=== PATIENT | male | born 2005 | race Caucasian/White ===

== ENCOUNTER 2023-04-11 12:15 | Inpatient (IN) | payer SELFPAY ==
[~2023-04-11] VITALS: Ht 170.2 cm; Wt 80.0 kg
[2023-04-11] MEDS ORDERED: IBUP-1022 PO (12:32)
[2023-04-11 17:13] LABS: RSV AMPLIFICATION NEGATIVE (NEGATIVE)
[2023-04-11] MEDS ORDERED: HOME MED LIST COMPLETE! XX SCH (22:00)
[2023-04-11] MEDS ORDERED: ONDANSETRON 4MG 2ML VIAL IV PRN (23:15)
[2023-04-11] MEDS: LR 1,000 ML IV SCH (23:15)
[2023-04-12] MEDS: NORCO, ANEXSIA 5/325MG TABLET (HYDROcodone/ACETAMINOPHEN) PO PRN (00:25)
[2023-04-12 02:43] VITALS: BP 113/68; TEMP 98.2; O2SAT 97
[2023-04-12 06:00] VITALS: BP_SYST 115; BP_SYST 129; BP_DIAS 68; BP_DIAS 70; TEMP 97.7; TEMP 97.9; O2SAT 95; O2SAT 98
[2023-04-12] MEDS: KETOROLAC 30 MG/ML 1ML VIAL IV PRN ×2 (07:28→23:45)
[2023-04-12] MEDS: LR 1,000 ML IV SCH ×3 (12:00→23:15)
[2023-04-12] MEDS ORDERED: TRANEXAMIC ACID 100 MG/ML 10ML VIAL As Ordered ONE (21:38)
[2023-04-12] MEDS ORDERED: ceFAZolin 2 GM/D5W 50 ML IV BAG As Ordered ONE (21:38)
[2023-04-12] MEDS ORDERED: DESFLURANE 240 ML INHALANT As Ordered ONE (21:46)
[2023-04-12] MEDS ORDERED: ONDANSETRON 4MG 2ML VIAL As Ordered ONE (21:46)
[2023-04-12] MEDS ORDERED: LIDOCAINE 2% 100MG/5ML SDV (FOR ANES.) As Ordered ONE (21:46)
[2023-04-12] MEDS ORDERED: propofoL 200 MG/20 ML VIAL As Ordered ONE (21:46)
[2023-04-12] MEDS ORDERED: SUGAMMADEX SODIUM 500 MG/5 ML VIAL (BRIDION) As Ordered ONE (21:46)
[2023-04-12] MEDS ORDERED: ROCURONIUM BROMIDE 50MG/5ML VIAL As Ordered ONE ×2 (21:46→21:53)
[2023-04-12] MEDS ORDERED: ACETAMINOPHEN 1000MG 100ML IV BAG As Ordered ONE (21:46)
[2023-04-12] MEDS ORDERED: METOCLOPRAMIDE INJ 10MG/2ML VIAL As Ordered ONE ×2 (21:46→21:47)
[2023-04-12] MEDS ORDERED: MIDAZOLAM INJ 2MG/2ML VIAL As Ordered ONE (21:46)
[2023-04-12] MEDS ORDERED: SEVOFLURANE INHAL SOLN 250 ML BTL As Ordered ONE (21:46)
[2023-04-12] MEDS ORDERED: fentaNYL 250 MCG/5 ML INJECTION As Ordered ONE (21:46)
[2023-04-12] MEDS ORDERED: dexmedeTOMIDine (4MCG/ML)200MCG/50ML BTL (PRECEDEX) As Ordered ONE (22:03)
[2023-04-12] MEDS ORDERED: oxyCODONE 5MG TAB PO PRN (23:50)
[2023-04-12] MEDS ORDERED: HYDROMORPHONE HCL 0.5 MG/ 0.5 ML SYRINGE IV PRN (23:50)
[2023-04-12] MEDS ORDERED: fentaNYL 100 MCG/2 ML INJECTION IV PRN (23:50)
[2023-04-12] MEDS ORDERED: ONDANSETRON 4MG 2ML VIAL IV PRN (23:50)
[2023-04-12] MEDS ORDERED: MEPERIDINE 25 MG/ML 1ML VIAL IV PRN (23:50)
[2023-04-13] VITALS (13 sets, daily range): BP systolic 100–116; BP diastolic 52–66; TEMP 96.6–98.2; O2SAT 94–98
[2023-04-13] MEDS: LR 1,000 ML IV SCH ×2 (01:50→21:50)
[2023-04-13] MEDS ORDERED: CLINDAMYCIN 600MG/50ML PREMIX BAG As Ordered ONE (10:24)
[2023-04-13] MEDS ORDERED: ceFAZolin 2 GM/D5W 50 ML IV BAG As Ordered ONE (11:11)
[2023-04-13] MEDS ORDERED: propofoL 200 MG/20 ML VIAL As Ordered ONE (11:21)
[2023-04-13] MEDS ORDERED: MIDAZOLAM INJ 2MG/2ML VIAL As Ordered ONE (11:21)
[2023-04-13] MEDS ORDERED: ROCURONIUM BROMIDE 50MG/5ML VIAL As Ordered ONE ×2 (11:21→11:52)
[2023-04-13] MEDS ORDERED: dexmedeTOMIDine (4MCG/ML)200MCG/50ML BTL (PRECEDEX) As Ordered ONE (11:21)
[2023-04-13] MEDS ORDERED: ACETAMINOPHEN 1000MG 100ML IV BAG As Ordered ONE (11:21)
[2023-04-13] MEDS ORDERED: METOCLOPRAMIDE INJ 10MG/2ML VIAL As Ordered ONE (11:21)
[2023-04-13] MEDS ORDERED: fentaNYL 250 MCG/5 ML INJECTION As Ordered ONE (11:21)
[2023-04-13] MEDS ORDERED: DESFLURANE 240 ML INHALANT As Ordered ONE (11:21)
[2023-04-13] MEDS ORDERED: LIDOCAINE 2% 100MG/5ML SDV (FOR ANES.) As Ordered ONE (11:21)
[2023-04-13] MEDS ORDERED: ONDANSETRON 4MG 2ML VIAL As Ordered ONE (11:21)
[2023-04-13] MEDS ORDERED: SUGAMMADEX SODIUM 500 MG/5 ML VIAL (BRIDION) As Ordered ONE (11:21)
[2023-04-13] MEDS ORDERED: oxyCODONE 5MG TAB PO PRN (12:55)
[2023-04-13] MEDS ORDERED: HYDROMORPHONE HCL 0.5 MG/ 0.5 ML SYRINGE IV PRN (12:55)
[2023-04-13] MEDS ORDERED: LR 1,000 ML IV SCH (12:55)
[2023-04-13] MEDS ORDERED: ONDANSETRON 4MG 2ML VIAL IV PRN (12:55)
[2023-04-13] MEDS ORDERED: MEPERIDINE 25 MG/ML 1ML VIAL IV PRN (12:55)
[2023-04-13] MEDS ORDERED: fentaNYL 100 MCG/2 ML INJECTION IV PRN (12:55)
[2023-04-13] MEDS: KETOROLAC 30 MG/ML 1ML VIAL IV PRN (21:05)
[2023-04-14 02:00] VITALS: BP 108/57; TEMP 97.9; O2SAT 97
[2023-04-14] MEDS: KETOROLAC 30 MG/ML 1ML VIAL IV PRN ×2 (05:41→11:43)
[2023-04-14 06:00] VITALS: BP 113/59; TEMP 98.2; O2SAT 98
[2023-04-14] MEDS: ceFAZolin SOD 2 GM in IV 1 EA IV SCH ×2 (09:57→13:23)
[2023-04-14 10:00] VITALS: BP_SYST 116; BP_SYST 118; BP_DIAS 59; BP_DIAS 60; TEMP 97.9; O2SAT 97
[2023-04-14] MEDS ORDERED: ACET-683 PO (10:37)
[2023-04-14] MEDS ORDERED: HYDR-3715 PO (10:37)
[2023-04-14] MEDS ORDERED: IBUP-1022 PO (10:37)
[2023-04-14] MEDS ORDERED: ECOT81TA5 PO (10:40)
[2023-04-14 14:00] VITALS: BP 122/65; TEMP 97.9; O2SAT 97
[2023-04-14] MEDS: NORCO, ANEXSIA 5/325MG TABLET (HYDROcodone/ACETAMINOPHEN) PO PRN (15:15)
== END 2023-04-14 15:15 | disposition home or self-care (01) | DRG 313 ==
LOC: M ED 12:15 → M ED INP 23:15 → M MS5PR 04-12 02:43
PROVIDERS: ADMIT Internal Medicine; ATTEND Student in an Organized Health Care Education/Training Program
PROC: 0SSH04Z Reposition Right Tarsal Joint with Internal Fixation Device, Open Approach (ICD-10-PCS; principal; 2023-04-12 15:00)
PROC: 0MQR0ZZ Repair Left Ankle Bursa and Ligament, Open Approach (ICD-10-PCS; 2023-04-13)
PROC: 0QSK04Z Reposition Left Fibula with Internal Fixation Device, Open Approach (ICD-10-PCS; 2023-04-13 10:00)
DX: S92.041A Displaced other fracture of tuberosity of right calcaneus, initial encounter for closed fracture (principal); S82.62XA Displaced fracture of lateral malleolus of left fibula, initial encounter for closed fracture; W13.2XXA Fall from, out of or through roof, initial encounter; S92.141A Displaced dome fracture of right talus, initial encounter for closed fracture; Y92.61 Building [any] under construction as the place of occurrence of the external cause; Y99.0 Civilian activity done for income or pay; Y93.H9 Activity, other involving exterior property and land maintenance, building and construction

== ENCOUNTER → 2023-04-23 | Outpatient (CLI) | payer SELFPAY ==
[~2023-04-23] MED LIST: ACET-683 PO; ECOT81TA5 PO; HYDR-3715 PO; IBUP-1022 PO
== END ==
LOC: M SOG 07:53
PROVIDERS: ATTEND Physician Assistant
DX: S92.041A Displaced other fracture of tuberosity of right calcaneus, initial encounter for closed fracture (principal); S82.62XA Displaced fracture of lateral malleolus of left fibula, initial encounter for closed fracture; X58.XXXA Exposure to other specified factors, initial encounter; Y92.9 Unspecified place or not applicable

== ENCOUNTER → 2023-05-14 | Outpatient (CLI) | payer SELFPAY | LOC: M SOG 07:57 | PROVIDERS: ATTEND Physician Assistant | DX: S82.62XA Displaced fracture of lateral malleolus of left fibula, initial encounter for closed fracture (principal); S92.041A Displaced other fracture of tuberosity of right calcaneus, initial encounter for closed fracture; Y93.9 Activity, unspecified; Y92.9 Unspecified place or not applicable ==

== ENCOUNTER → 2023-06-25 | Outpatient (CLI) | payer SELFPAY | LOC: M SOG 07:54 | PROVIDERS: ATTEND Physician Assistant | DX: S82.62XA Displaced fracture of lateral malleolus of left fibula, initial encounter for closed fracture (principal); S92.041A Displaced other fracture of tuberosity of right calcaneus, initial encounter for closed fracture; W18.30XA Fall on same level, unspecified, initial encounter; Y92.009 Unspecified place in unspecified non-institutional (private) residence as the place of occurrence of the external cause ==